=== PATIENT | male | born 1995 | race Two or more races ===

== ENCOUNTER 2019-01-31 05:22 | Emergency (ER) | payer SELFPAY | END 2019-01-31 07:14 | disposition left against medical advice (07) | LOC: ER 06:57 | DX: S01.01XA Laceration without foreign body of scalp, initial encounter (principal); Z53.21 Procedure and treatment not carried out due to patient leaving prior to being seen by health care provider; X58.XXXA Exposure to other specified factors, initial encounter; Y93.89 Activity, other specified; Y92.89 Other specified places as the place of occurrence of the external cause; Y99.8 Other external cause status ==